=== PATIENT | female | born 1975 | race Caucasian/White ===

== ENCOUNTER 2020-12-01 10:23 | Emergency (ER) | payer MEDICAID ==
[~2020-12-01] VITALS: Ht 165.1 cm; Wt 61.2 kg
[~2020-12-01 10:23] MED LIST: ACCUNEB SO1.25 MG/1 INH; ALBUTEROL INH; ALBUTEROL INH INH; AMBIEN 10 MG TA10 MG; AMBIEN 10 MG TA10 MG PO; AMOXICILLIN875 MG PO; ATIVAN0.5 MG PO; ATIVAN1 MG PO; BACLOFEN 10MG T10 M1; BACTRIM DS TAB1 EACH PO; CARISOPRODOL 3350 MG PO; CIPROFLOXACIN500 M1 PO; CYCLOBENZAPRINE5 MG PO; CYMBALTA60 MG; DICYCLOMINE HCL20 MG PO; DOXYCYCLINE 10100 MG PO; ESTRACE2 MG; ESTRACE2 MG PO; FLEXERIL PO; FLOVENT; GEODON; GEODON60 MG PO; GEODON80 MG PO; HYDROCODONE-AP1 EAC6 PO; LORTAB 5 MG/5001 TA1 PO; MEDROLDOSEPACK PO; MIRTAZAPINE; NORCO 5-325 TA1 EACH PO; OLEPTRO ER150 M1 PO; PAXIL20 MG PO; PERCOCET 5-3251 EACH PO; PHENERGAN 25 MG25 M1 PO; PHENERGAN 25 MG25 MG PO; PHENERGAN VC-C120 ML PO; PHENERGAN-CODE120 ML PO; PRAZOSIN HCL2 MG; PREDNISONE 20 M20 M1 PO; PROAIR HFA8.5 GM IH; SEE COMMENTS; SEROQUEL; SEROQUEL PO; SEROQUEL XR 30300 M1; SEROQUEL XR 30300 MG; SOMA250 MG; SONATA10 MG PO; TESSALON PERLE100 MG PO; TESSALON200 MG PO; ULTRAM 50MG TAB50 MG PO; VEETIDS 500500 MG PO; VICODIN 5-5001 EACH PO; VICODIN PO; VISTARIL 25 MG25 M1 GT; XANAX 0.5 MG0.5 M1; XANAX XR2 MG PO; ZOFRAN ODT4 MG DISSOLVE; ZOFRAN ODT4 MG PO; ZOLOFT; ZOLOFT 50 MG TA50 M1 PO; ZOLOFT100 MG; ZOLOFT100 MG PO; ZPAK PO
[2020-12-01 10:38] VITALS: BP 131/76
[2020-12-01] MEDS ORDERED: GABAPENTIN600 M1 PO (10:40)
== END 2020-12-01 11:58 | disposition home or self-care (01) ==
LOC: M.ERS 10:23
DX: S09.8XXA Other specified injuries of head, initial encounter (principal); R04.0 Epistaxis; F17.210 Nicotine dependence, cigarettes, uncomplicated; Z85.42 Personal history of malignant neoplasm of other parts of uterus; Z90.49 Acquired absence of other specified parts of digestive tract; Z90.710 Acquired absence of both cervix and uterus; Z86.19 Personal history of other infectious and parasitic diseases; Z91.041 Radiographic dye allergy status; Z88.6 Allergy status to analgesic agent; Z91.013 Allergy to seafood; Z91.018 Allergy to other foods; W22.8XXA Striking against or struck by other objects, initial encounter; Y93.89 Activity, other specified; Y92.89 Other specified places as the place of occurrence of the external cause; Y99.8 Other external cause status